=== PATIENT | male | born 1980 ===

== ENCOUNTER 2023-10-08 00:09 | Emergency (ER) | payer SELFPAY ==
[2023-10-08 00:12] VITALS: BP 154/100; PULSE 117; RESP 20; TEMP 36.8; O2SAT 100
--- NOTE | 2023-10-08 01:18 | PC.NURSE ---
patient states the wait is too long and left from triage area
== END 2023-10-08 01:18 | disposition left against medical advice (07) ==
LOC: ANHED 01:24
DX: R07.89 Other chest pain (principal)
CPT/HCPCS: 99199

== ENCOUNTER 2024-07-06 13:56 | Emergency (ER) | payer SELFPAY ==
--- NOTE | ~2024-07-06 | XR_ITS ---
EXAMINATION: XR chest 2V DATE: 07/06/2024 21:01 INDICATION: Sepsis. TECHNIQUE: Frontal and lateral views of the chest were obtained. COMPARISON: Chest 2 views 01/11/2011 FINDINGS: There is no pneumonia, pleural effusion, or pneumothorax. The heart is normal. IMPRESSION: 1. No acute cardiopulmonary disease. Reviewed, dictated and finalized at location A.
--- NOTE | ~2024-07-06 | CT_ITS ---
EXAMINATION: CT abdomen pelvis w con DATE: 07/06/2024 23:37 INDICATION: Abdominal pain. Vomiting. TECHNIQUE: Computed tomography (CT) of the abdomen and pelvis was performed with 100 mL Omnipaque 350 intravenous contrast. Automated exposure control and iterative reconstruction technique were employe d. The dose-length product was 378.03 mGy-cm. COMPARISON: None. FINDINGS: The visualized portions of the lung bases are clear without pneumonia or pleural effusion. The normal. No pericardial effusion. There is diffuse hepatic steatosis. The gallbladder, spleen, connolly creas, adrenal glands, and kidneys are normal. There is diverticulosis of the colon without evidence of diverticulitis. There are no dilated loops of bowel. The appendix is normal. There are no patholog ically enlarged lymph nodes. There is no ascites. There is moderate lower lumbar spondylosis. There a re hemangiomas in T11, L4, and L5 vertebral bodies. IMPRESSION: 1. Diffuse hepatic steatosis. Reviewed, dictated and finalized at location A.
[2024-07-06 15:29] VITALS: BP 141/107; PULSE 117; RESP 15; TEMP 36.8; O2SAT 99
--- NOTE | 2024-07-06 15:34 | ED.NAVMDI ---
HPI - Nausea/Vomiting/Diarrhea General Chief complaint: Nausea/Vomiting/Diarrhea <Franca Mays PA-C - Last Filed: 07/07/24 09:09> Stated complaint: N/V. Pt reports vomiting worms <Franca Mays PA-C - Last Filed: 07/07/24 09:09> Time Seen by Provider: 07/06/24 15:34 <Franca Mays PA-C - Last Filed: 07/07/24 09:09> Focused HPI: This is a 43 year old male that presents to the ER for nausea and vomiting. Ongoing over the last couple of days. Reports associated epigastric abdominal pain. Reports some reflux. Reports he is seeing worms in his vomit and urine. Denies diarrhea. GENERAL: Well-appearing, well-nourished, and in no acute distress. HEAD: Normocephalic, atraumatic. CHEST: Clear to auscultation. ?No respiratory distress. HEART: Regular rate and rhythm.? NEURO: ?Alert and oriented x3. Patient screened in triage and initial orders placed.? ?Additional care and disposition to be based upon?diagnostic testing and treatment. <Franca Mays PA-C - Last Filed: 07/07/24 09:09> Focused HPI: This is a 43 year old male that presents to the ER for nausea and vomiting. Ongoing over the last couple of days. Reports associated epigastric abdominal pain. Reports some reflux. Reports he is seeing worms in his vomit and urine. GENERAL: Well-appearing, well-nourished, and in no acute distress. HEAD: Normocephalic, atraumatic. CHEST: Clear to auscultation. ?No respiratory distress. HEART: Regular rate and rhythm.? NEURO: ?Alert and oriented x3. Patient screened in triage and initial orders placed.? ?Additional care and disposition to be based upon?diagnostic testing and treatment. Agree with triage assessment. Patient also admits to having perfuse diarrhea for 1 day approximately 2 days ago. Patient states that for the past 2 days he has not had anything to eat or drink as he has not been able to keep anything down. Denies any sick contacts at home. <Abraham Cooper MD - Last Filed: 07/07/24 01:37> Related Data Allergies/Adverse reactions: Allergies Allergy/AdvReac Type Severity Reaction Status Date / Time Penicillins Allergy Unknown Anaphylactic Verified 07/06/24 14:00 Shock ibuprofen Allergy Hives Verified 07/06/24 14:00 AMOXICILLIN TRIHYDRATE Allergy Mild Anaphylactic Uncoded 07/06/24 14:00 Shock POTASSIUM CLAVULANATE Allergy Mild Anaphylactic Uncoded 07/06/24 14:00 Shock <Franca Mays PA-C - Last Filed: 07/07/24 09:09> Review of Systems Review of Systems: All systems are reviewed and are negative unless stated otherwise in the HPI. <Abraham Cooper MD - Last Filed: 07/07/24 01:37> Exam Narrative: General: Alert, awake, afebrile, in no acute distress. HEENT: PERRL, no rhinorrhea, no post nasal drip, oropharynx clear. Cardiovascular: Regular rate and rhythm, no murmurs, rubs or gallops, no peripheral edema. Respiratory: Clear to auscultation bilaterally, no tachypnea, no wheezing, no rhonchi, no rubs, no respiratory distress. Abdomen: Soft, nontender, nondistended, no rebound, no guarding, no peritoneal signs. Musculoskeletal: No joint swelling or deformity, normal muscle tone. Skin: No rashes or petechia, no signs of infection. Psychiatric: Alert and oriented, normal behavior and judgment for situation. Neurological: Alert and oriented to person, place, and time. Follows all commands. No focal deficits, speech is clear and fluent. <Abraham Cooper MD - Last Filed: 07/07/24 01:37> Course Vital Signs Vital signs: Vital Signs Temperature 98.3 F 07/06/24 15:29 Pulse Rate 117 H 07/06/24 15:29 Respiratory Rate 15 07/06/24 15:29 Blood Pressure 141/107 H 07/06/24 15:29 Pulse Oximetry 99 07/06/24 15:29 Oxygen Delivery Room Air 07/06/24 15:29 Temperature 98.9 F 07/06/24 22:34 Pulse Rate 105 H 07/07/24 01:26 Respiratory Rate 12 07/07/24 01:26 Blood Pressure 142/99 H 07/07/24 01:26 Pulse Oximetry 100 07/07/24
[2024-07-06 16:17] LABS: Basophils Absolute Auto 0.1 K/mm3 (0.0-0.1); Basophils Percent Auto 0.4 % (0.2-1.2); Eosinophils Percent Auto 0.2 % (0-4.4); Hematocrit 41.3 % (42.0-52.0); Immature Granulocyte Absolute 0.11 K/mm3 (0.00-0.031); Immature Granulocyte Percent A 0.8 % (0-0.5); Lymphocytes Absolute Auto 1.68 K/mm3 (0.9-3.2); Mean Corpuscular HGB Conc 33.9 g/dl (32-36); Mean Corpuscular Hemoglobin 29.7 pg (26-34); Mean Corpuscular Volume 87.5 fl (80-100); Mean Platelet Volume 10.5 fl (7.4-10.4); Monocytes Absolute Auto 1.2 K/mm3 (0.1-0.6); Monocytes Percent Auto 8.4 % (2.6-8.5); Neutrophils Percent Auto 78.2 % (45.5-73.1); Platelet Count Result 299 k/mm3 (150-375); Red Blood Count 4.72 M/mm3 (4.6-6.20); Red Cell Distribution Width 13.2 % (11.5-14.5)
[2024-07-06 16:24] LABS: Alanine Aminotransferase 32 U/L (6-50); Albumin Level 4.8 g/dL (3.5-5.1); Alkaline Phosphatase 85 U/L (38-126); Anion Gap 16 mmol/L (4-12); Aspartate Amino Transferase 69 U/L (17-59); Blood Urea Nitrogen 23 mg/dL (9-20); Calcium 9.5 mg/dL (8.4-10.2); Carbon Dioxide 28 mmol/L (22-30); Chloride 89 mmol/L (98-107); Estimated CRCL calculation 74 ml/min; Estimated Glomerular Filt Rate > 60; Glucose 113 mg/dL (65-110); Lipase 103 U/L (23-300); Potassium 3.8 mmol/L (3.4-5.0); Sodium 133 mmol/L (137-145)
[2024-07-06 16:40] VITALS: BP 136/96; PULSE 112; TEMP 37.9; O2SAT 98
[2024-07-06 20:45] LABS: Add Urine Microscopic? YES; Appearance Urine Cloudy (Clear); Bacteria Urine None Seen /hpf; Bilirubin Urine 2+ (Negative); Blood Urine Negative (Negative); Color Urine Dark Yellow (Yellow); Glucose Urine UA Negative (Negative); Ketones Urine 2+ mg/dL (Negative); Leukocyte Esterase Ur Trace LEU/UL (Negative); Mucus Urine Present /lpf; Need Manual Microscopic Reviewed; Nitrate Urine Negative (Negative); Non Pathogenic Casts >20; Protein Urine 1+ mg/dL (Negative); RBC Urine 0-2 /hpf (0-2); Specific Grav Ur 1.028 (1.001-1.035); Squamous Epithelial Cell Urine Occasional /hpf (Few); WBC Urine 0-5 /hpf (0-3)
[2024-07-06 20:59] LABS: Amphetamine Screen Urine Negative (Negative); Barbiturate Screen Urine Negative (Negative); Benzodiazepines Screen Urine Negative (Negative); Cannabinoid Screen Urine Negative (Negative); Cocaine Screen Urine Negative (Negative); Methadone Screen Urine Negative (Negative); Opiate Screen Urine Negative (Negative); Phencyclidine Screen Urine Negative (Negative)
[2024-07-06 21:08] LABS: Influenza A QL RT-PCR Negative (Negative); Influenza B QL RT-PCR Negative (Negative); SARS-CoV-2 RNA PCR Negative (Negative)
[2024-07-06 22:34] VITALS: BP 158/99; PULSE 106; RESP 18; TEMP 37.2; O2SAT 97
[2024-07-06] MEDS: SODIUM CHLORIDE 0.9% IV 1,000 ML 999 ML IV CONT ×2 (22:59→23:56)
--- NOTE | 2024-07-06 23:24 | PC.NURSE ---
Assumed care of pt from SIMONE Adams @ 332
[2024-07-06] MEDS: ONDANSETRON INJ 4 MG/2 ML VIAL IV PUSH (23:55)
[2024-07-06 23:56] VITALS: BP 125/100; PULSE 102; RESP 13; O2SAT 100
[2024-07-07] MEDS: PANTOPRAZOLE SODIUM IV 40 MG VIAL IV PUSH (01:24)
[2024-07-07 01:26] VITALS: BP 142/99; PULSE 105; RESP 12; O2SAT 100
== END 2024-07-07 01:47 | disposition home or self-care (01) ==
PROVIDERS: Physician Assistant; Emergency Provider Emergency Medicine
DX: R11.2 Nausea with vomiting, unspecified (principal); R19.7 Diarrhea, unspecified; E86.0 Dehydration; Z20.822 Contact with and (suspected) exposure to COVID-19
CPT/HCPCS: 36415; 71046; 74177; 80053; 80307; 81001; 83690; 85025; 87636; 96361; 96374; 99284; J2405; J2470; J7030; Q9967